=== PATIENT | female | born 1975 | race Caucasian/White ===

== ENCOUNTER 2016-12-09 16:55 | Emergency (ER) | payer OTHER ==
[~2016-12-09] VITALS: Ht 170.2 cm; Wt 68.2 kg
[2016-12-09 17:03] VITALS: BP 136/83; PULSE 112; RESP 16; O2SAT 92
[2016-12-09] MEDS ORDERED: KLO5T PO (17:52)
[2016-12-09] MEDS ORDERED: METO50TA3 PO (17:52)
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
[2016-12-09] MEDS ORDERED: HYDROcodone-APAP 5-325 mg Tablet PO ONE (18:50)
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
[2016-12-09] MEDS ORDERED: _HYDROcodone/APAP 5-325 mg Tablet PO PRN (20:45)
[2016-12-09 20:51] VITALS: BP 132/80; PULSE 99; RESP 16; O2SAT 96
== END 2016-12-09 20:59 | disposition home or self-care (01) ==
LOC: SED 16:55 → EDBD 16:55 → EDUNIT# 16:55 → SED 20:59
DX: S16.1XXA Strain of muscle, fascia and tendon at neck level, initial encounter (principal); V43.52XA Car driver injured in collision with other type car in traffic accident, initial encounter; Y93.89 Activity, other specified; Y92.411 Interstate highway as the place of occurrence of the external cause; Y99.8 Other external cause status; R42 Dizziness and giddiness; R20.2 Paresthesia of skin; R51 Headache; M54.9 Dorsalgia, unspecified; R11.0 Nausea; Z98.890 Other specified postprocedural states